=== PATIENT | female | born 1965 | race Caucasian/White ===

== ENCOUNTER 2017-09-02 12:08 | Emergency (ER) | payer BC, OTHER ==
[~2017-09-02] VITALS: Ht 175.3 cm; Wt 76.6 kg
[2017-09-02 12:20] VITALS: TEMP 36.9; Ht 175.3 cm; Wt 76.6 kg
--- NOTE | 2017-09-02 13:07 | EMERGENCY ROOM VISIT NOTE ---
History Report prepared by Ellie: Brayan Hylton Under the Supervision of: Dr. Omero De La Rosa M.D. First contact with patient: 12:49 Chief Complaint: RAPID HEART RATE Stated Complaint: RAPID HEART RATE History of Present Illness The patient is a 52 year old white female with a past medical history of WPW who presents to the Emergency Room with complaints of a sudden onset episode of tachy cardia that occurred shortly prior to arrival. The patient states that she was having a mammogram performed today when she felt her heart rate spike. She states that the episode lasted about 1 minute before spontaneously resolving. The patient notes that she does think that she experiences a headache whenever she has these episodes. She does believe that these episodes have been waking her up at night recently, and she admits she is not getting as much sleep as usual secondary to stress. She denies any recent travel, no cough , fever, congestion, or chest pain. Source of History: patient Onset: [employer] Position: chest Quality: other (Tachycardia) Timing: other (1 minute episode) Associated Symptoms: + headache, No fevers, No cough Review of Systems See HPI for pertinent positives and negatives. A total of ten systems were reviewed and were otherwise negative. Past Medical & Surgical History of WPW Family History None discussed. Social History Smoking Status: Never Smoker Drug Use: none Current/Historical Medications Scheduled Fluticasone Prop/Salmeterol (Advair Diskus 100/50 60 Dose), 1 PUFF INH BID Levocetirizine Dihydrochloride (Xyzal), 1 TAB PO HS Metoprolol Succinate (Toprol Xl), 1 TAB PO QHS Multivitamin (Multivitamin), 1 TAB PO QAM Scheduled PRN Diphenhydramine Hcl (Benadryl Allergy), 1 TAB PO UD PRN for Allergic Reaction Allergies Uncoded Allergies: SULFA DRUGS (Adverse Reaction, Intermediate, RASH, 09/02/17) Physical Exam Vital Signs Date Time Temp Pulse Resp B/P (MAP) Pulse Ox O2 Delivery O2 Flow Rate FiO2 09/02/17 14:07 82 18 136/88 98 Room Air 09/02/17 13:08 98 Nasal Cannula 09/02/17 13:08 98 Room Air 09/02/17 12:40 91 09/02/17 12:20 36.9 105 18 148/87 98 Room Air Physical Exam GENERAL: Awake, alert, well-appearing, NAD HENT: Normocephalic, atraumatic. EYES: Normal conjunctiva. Sclera non-icteric. NECK: Supple. No nuchal rigidity. FROM. RESPIRATORY: CTAB, no rhonchi, wheezing, crackles CARDIAC: RRR, no MRG ABDOMEN: Soft, NTND, BS+ MSK: No chest wall TTP, no LE edema NEURO: GCS 15, CN 2-12 intact, moves all 4s on command SKIN: No rash or jaundice noted. Medical Decision & Procedures ER Provider Diagnostic Interpretation: Radiology results as stated below per my review and radiologist interpretation: CHEST ONE VIEW PORTABLE CLINICAL HISTORY: 52 years-old Female presenting with EVALUATE WEAKNESS. TECHNIQUE: Portable upright AP view of the chest was obtained. COMPARISON: None. FINDINGS: Cardiomediastinal silhouette normal. No focal opacity. No large effusion or pneumothorax. Osseous structures normal. Upper abdomen normal. IMPRESSION: 1. No acute cardiopulmonary disease. Electronically signed by: Vaughn Marlow M.D. 09/02/2017 1:22 PM Dictated Date/Time: 09/02/2017 1:21 PM Laboratory Results 09/02/17 12:20 Red Blood Count 4.07, Mean Corpuscular Volume 101.2, Mean Corpuscular Hemoglobin 34.4, Mean Corpuscular Hemoglobin Concent 34.0, Mean Platelet Volume 9.6, Neutrophils (%) (Auto) 69.1, Lymphocytes (%) (Auto) 24.7, Monocytes (%) ( Auto) 5.4, Eosinophils (%) (Auto) 0.4, Basophils (%) (Auto) 0.3, Neutrophils # ( Auto) 5.14, Lymphocytes # (Auto) 1.84, Monocytes # (Auto) 0.40, Eosinophils # ( Auto) 0.03, Basophils # (Auto) 0.02 09/02/17 12:20 Test 09/02/17 12:20 White Blood Count 7.44 K/uL (4.8-10.8) Red Blood Count 4.07 M/uL (4.2-5.4) Hemoglobin 14.0 g/dL (12.0-16.0) Hematocrit 41.2 % (37-47) Mean Corpuscular Volume 101.2 fL (80-100) Mean Corpuscular Hemoglobin 34.4 pg (25-34) Mean Corpuscular Hemoglobin Concent 34.0 g/dl (32-36) Platelet Count 278 K/uL (130-400) Mean Platelet Volume 9.6 fL (7.4-10.4) Neutrophils (%) (Auto) 69.1 % Lymphocytes (%) (Auto) 24.7 % Monocytes (%) (Auto) 5.4 % Eosinophils (%) (Auto) 0.4 % Basophils (%) (Auto) 0.3 % Neutrophils # (Auto) 5.14 K/uL (1.4-6.5) Lymphocytes # (Auto) 1.84 K/uL (1.2-3.4) Monocytes # (Auto) 0.40 K/uL (0.11-0.59) Eosinophils # (Auto) 0.03 K/uL (0-0.5) Basophils # (Auto) 0.02 K/uL (0-0.2) RDW Standard Deviation 50.2 fL (36.4-46.3) RDW Coefficient of Variation 13.4 % (11.5-14.5) Immature Granulocyte % (Auto) 0.1 % Immature Granulocyte # (Auto) 0.01 K/uL (0.00-0.02) Prothrombin Time 10.1 SECONDS (9.0-12.0) Prothromb Time International Ratio 1.0 (0.9-1.1) Activated Partial Thromboplast Time 26.1 SECONDS (21.0-31.0) Partial Thromboplastin Ratio 1.0 Anion Gap 4.0 mmol/L (3-11) Est Creatinine Clear Calc Drug Dose 69.6 ml/min Estimated GFR () 75.5 Estimated GFR (Non- 65.2 BUN/Creatinine Ratio 18.4 (10-20) Calcium Level 9.8 mg/dl (8.5-10.1) Magnesium Level 2.3 mg/dl (1.8-2.4) Total Bilirubin 0.6 mg/dl (0.2-1) Direct Bilirubin 0.2 mg/dl (0-0.2) Aspartate Amino Transf (AST/SGOT) 25 U/L (15-37) Alanine Aminotransferase (ALT/SGPT) 44 U/L (12-78) Alkaline Phosphatase 72 U/L (45-117) Troponin I < 0.015 ng/ml (0-0.045) Pro-B-Type Natriuretic Peptide 76 pg/ml (0-900) Total Protein 8.6 gm/dl (6.4-8.2) Albumin 4.4 gm/dl (3.4-5.0) Lipase 189 U/L (73-393) Thyroid Stimulating Hormone (TSH) 1.360 uIu/ml (0.300-4.500) Laboratory results reviewed by me Medications Administered Medications (Trade) Dose Ordered Sig/Priyanka Route Start Time Stop Time Status Last Admin Dose Admin Potassium Chloride (Klor-Con M10) 40 meq STK-MED ONCE .ROUTE 09/02/17 13:55 09/02/17 13:56 DC 09/02/17 14:06 40 MEQ ECG Per My Interpretation Indication: other (Tachycardia) Rate (beats per minute): 91 Rhythm: normal sinus Findings: other (Normal interval, normal axis, questionable delta wave in the anterior and lateral leads.) ED Course 1259: The patient was evaluated in room A10. A complete history and physical exam was performed. 1339: I discussed the case with Dr. Black - [facility]. He was in agreement with Ric. 1414: I reevaluated the patient. Discussed results and discharge instructions: She verbalized understanding and agreement. The patient is ready for discharge. Medical Decision The patient is a 52 year old white female with a past medical history of WPW who presents to the Emergency Room with complaints of a sudden onset episode of tachy cardia that occurred shortly prior to arrival. The patient states that she was having a mammogram performed today when she felt her heart rate spike. She states that the episode lasted about 1 minute before spontaneously resolving. Nursing notes reviewed. Ancillary studies and prior records reviewed. Differential diagnosis: Etiologies such as premature contractions, electrolyte abnormality, cardiac dysrhythmia, thyroid dysfunction, pulmonary embolism, infection, gastrointestinal, as well as others were entertained. Patient was seen and evaluated the bedside. Patient is a prior history of WPW status post ablation. Patient was concerned that she had an episode of SVT. Patient says that she recorded this with a monitor appetite is on her phone. Patient did show me the rhythm strip and it appears to be polymorphic but not V. fib unsure whether not it is motion artifact. Strip was also sent to her primary silo worker Dr. Trinidad with [facility]. Patient does state that she has had some increased stress as well as decreased sleep. Patient denies any stimulant or supplement use. Denies caffeine, nicotine, alcohol, or drug abuse. Patient does not take anything for rate control. Patient just feels mildly fatigued but denies any chest pain or shortness of breath. Patient did have blood work, EKG, troponin, chest x-ray. Patient chest x-ray clear. EKG shows a sinus rhythm. Do not believe she has a delta wave. Patient 's DC is not over the short period QRS is not wide. She is patient notably does have some low potassium. Patient was repleted. I discussed with the patient replete and at home other supplements her diet. I did speak with the on-call silo worker who thought some Toprol would be acceptable for rate control. Patient was told of this and told to take in the evening and to follow-up with her primary silo worker. Patient was deemed suitable for outpatient follow-up treatment at this time. Patient was given strict follow-up, discharge, and return precautions. All questions were answered. Patient was deemed suitable for outpatient follow-up at this time. Patient agreed with the plan of care and was safely discharged home. Medication Reconcilliation Current Medication List: was personally reviewed by me Blood Pressure Screening Patient's blood pressure: Elevated blood pressure Blood pressure disposition: Elevated BP felt to be situational Consults Time Called: 1331 Consulting Physician: Dr. Wayne Jurado [facility] Returned Call: [phone] I discussed the case with Dr. Wayne Jurado [facility]. He was in agreement with Toprol. Impression Primary Impression: Palpitations Additional Impression: Hypokalemia Scribe Attestation The scribe's documentation has been prepared under my direction and personally reviewed by me in its entirety. I confirm that the note above accurately reflects all work, treatment, procedures, and medical decision making performed by me. Departure Information Dispostion Home / Self-Care Prescriptions Metoprolol Succinate (TOPROL XL) 25 Mg Tab 1 TAB PO QHS for 30 Days, #30 TAB 1 Refill Prov: Omero De La Rosa M.D. 09/02/17 Referrals Lamonte Linder MD (PCP) Patient Instructions ED Palpitations, Hypokalemia [place], My [facility] Additional Instructions Please return to the emergency department if you have worsening or recurrent symptoms not amenable to at-home treatment. Please call for a follow-up appointment with her primary care physician. Please take your medications as prescribed. If you have other concerns and/or complaints please feel free to also call your primary care physician's office or return the ED for further evaluation, management, and treatment. You may take 800 mg Ibuprofen every 6 hours as needed for pain/fever with food unless told by your physician not to take NSAIDs. You may take tylenol 1000 mg every 6 hours as needed for pain/fever unless told by your physician to not take it or have liver problems. You may take motrin and tylenol separately or at the same time. Take your medications as prescribed. We sure to replete potassium and other your diet or as a supplement. Please take your medication as prescribed. Please call your silo worker office for follow-up appointment. You have been examined and treated today on an emergency basis only. This is not a substitute for, or an effort to provide, complete comprehensive medical care. It is impossible to recognize and treat all injuries or illnesses in a single emergency department visit. It is therefore important that you follow up closely with [facility], your PCP, and/or your specialist(s). Call as soon as possible for an appointment. Thank you for your time and consideration. I look forward to speaking with you again soon. Please don't hesitate to call us if you have any questions. Problem Qualifiers
[2017-09-02 13:08] VITALS: O2SAT 98
[2017-09-02 13:19] LABS: BASO % 0.3 %; BASO ABS # 0.02 K/uL (0-0.2); EOS % 0.4 %; EOS ABS # 0.03 K/uL (0-0.5); HEMATOCRIT 41.2 % (37-47); IG# 0.01 K/uL (0.00-0.02); LYMPH % 24.7 %; LYMPH ABS # 1.84 K/uL (1.2-3.4); MEAN CELL VOLUME 101.2 fL (80-100); MEAN CORPUSCULAR HEMOGLOBIN 34.4 pg (25-34); MEAN PLATELET VOLUME 9.6 fL (7.4-10.4); MONO % 5.4 %; NEUT % 69.1 %; NEUT ABS # 5.14 K/uL (1.4-6.5); PLATELET COUNT 278 K/uL (130-400); RED CELL DISTRIBUTION WIDTH CV 13.4 % (11.5-14.5); RED CELL DISTRIBUTION WIDTH SD 50.2 fL (36.4-46.3); WHITE BLOOD COUNT 7.44 K/uL (4.8-10.8)
[2017-09-02 13:24] LABS: PTT PATIENT 26.1 SECONDS (21.0-31.0)
[2017-09-02] MEDS ORDERED: DIPH1TAB87 PO (13:24)
[2017-09-02] MEDS ORDERED: LEVO5TAB2 PO (13:24)
[2017-09-02] MEDS ORDERED: MULT-506 PO (13:24)
--- NOTE | 2017-09-02 13:24 | DIAGNOSTIC IMAGING REPORT ---
CHEST ONE VIEW PORTABLE CLINICAL HISTORY: 52 years-old Female presenting with EVALUATE WEAKNESS. TECHNIQUE: Portable upright AP view of the chest was obtained. COMPARISON: None. FINDINGS: Cardiomediastinal silhouette normal. No focal opacity. No large effusion or pneumothorax. Osseous structures normal. Upper abdomen normal. IMPRESSION: 1. No acute cardiopulmonary disease. Electronically signed by: Vaughn Marlow M.D. 09/02/2017 1:22 PM Dictated Date/Time: 09/02/2017 1:21 PM
[2017-09-02 13:28] LABS: ALBUMIN 4.4 gm/dl (3.4-5.0); ALT/SGPT 44 U/L (12-78); AST/SGOT 25 U/L (15-37); BLOOD UREA NITROGEN 18 mg/dl (7-18); CALCIUM 9.8 mg/dl (8.5-10.1); CARBON DIOXIDE 28 mmol/L (21-32); GLUCOSE 130 mg/dl (70-99); LIPASE 189 U/L (73-393); POTASSIUM 3.4 mmol/L (3.5-5.1); SODIUM 139 mmol/L (136-145)
[2017-09-02] MEDS ORDERED: ADVIN10/60 INH (13:28)
[2017-09-02] MEDS ORDERED: POTASSIUM CHLORIDE 20 MEQ TABCR PO STA (13:33)
[2017-09-02 13:46] LABS: ALKALINE PHOSPHATASE 72 U/L (45-117); TOTAL PROTEIN 8.6 gm/dl (6.4-8.2)
[2017-09-02] MEDS ORDERED: POTASSIUM CHLORIDE 10 MEQ TABCR ONE (13:55)
[2017-09-02] MEDS ORDERED: METO-478 PO (14:04)
[2017-09-02 14:07] VITALS: BP 136/88; PULSE 82; O2SAT 98
== END 2017-09-02 14:24 | disposition home or self-care (01) ==
LOC: C.EDB 12:09 → C.EDA 14:24
DX: R00.0 Tachycardia, unspecified (principal); I45.6 Pre-excitation syndrome; Z79.899 Other long term (current) drug therapy; Z88.2 Allergy status to sulfonamides